=== PATIENT | female | born 1985 | race Two or more races ===

== ENCOUNTER 2018-08-10 18:03 | Emergency (ER) | payer OTHER, MEDICAID ==
[~2018-08-10] VITALS: Ht 167.6 cm; Wt 84.4 kg
--- NOTE | 2018-08-10 18:10 | NUR ---
PT TO ER BED 10 C/O LOWER ABDOMINAL PAIN W/ N/V/D X 2 WEEKS NOW. WAS AT [place] LAST WEEK AND WAS DIAGNOSED W/ DIVERTICULIS AND WAS ON ANTIBIOTICS. PT STATES STIL NOT GETTING ANY BETTER. PLACED ON MONITOR. VSS. AWAITING MD AUGUSTE.
--- NOTE | 2018-08-10 18:20 | NUR ---
DR DAILEY AT BEDSIDE FOR EVAL.
[2018-08-10] MEDS ORDERED: IV NS 0.9% 500 ML BAG IV ONE (18:30)
[2018-08-10 18:48] LABS: BASOPHILS # (AUTO) 0.1 /CMM (0.0-0.2); BASOPHILS % (AUTO) 1.9 % (0.0-2.0); EOSINOPHILS % (AUTO) 0.4 % (0.0-6.0); HEMATOCRIT 41 % (33-45); HEMOGLOBIN 13.5 g/dL (11.5-14.8); LYMPHOCYTES % (AUTO) 14.8 % (20.0-44.0); MEAN CORPUSCULAR HGB CONC 33 g/dl (31.0-36.0); MEAN CORPUSCULAR VOLUME 83 fL (82-100); MONOCYTES # (AUTO) 0.4 /CMM (0.1-1.30); MONOCYTES % (AUTO) 6.1 % (2.0-12.0); NEUTROPHILS # (AUTO) 5.4 /CMM (1.8-8.9); NEUTROPHILS % (AUTO) 76.8 % (43.0-81.0); PLATELET COUNT (AUTO) 169 /CMM (150-450); RDW COEFFICIENT OF VARIATION 20.1 (11.5-15.0); RED BLOOD CELL COUNT(AUTO) 4.95 MIL/uL (4.0-5.2); WHITE BLOOD COUNT (AUTO) 6.9 K/uL (4.3-11.0)
--- NOTE | 2018-08-10 18:50 | NUR ---
PT TO RADIOLOGY FOR ABDOMINAL CT SCAN VIA [facility].
[2018-08-10 18:58] LABS: CALCIUM, SERUM 8.8 mg/dL (8.5-10.1); CARBON DIOXIDE 24 mmol/L (21-32); CHLORIDE 95 mmol/L (98-107); CREATININE 1.1 mg/dL (0.6-1.3); GLUCOSE 115 mg/dL (74-106); POTASSIUM 3.4 mmol/L (3.5-5.1); SODIUM SERUM 129 mmol/L (136-145); UREA NITROGEN, BLOOD 13 mg/dL (7-18)
[2018-08-10 19:03] LABS: INR 4.07 (0.85-1.15)
[2018-08-10 19:04] LABS: ALANINE AMINOTRANSFERASE 649 U/L (12-78); ALBUMIN 3.4 g/dL (3.4-5.0); ALKALINE PHOSPHATASE 91 U/L (46-116); ASPARTATE AMINOTRANSFERASE 428 U/L (15-37); BILIRUBIN,DIRECT 1.2 mg/dL (0.0-0.2); BILIRUBIN,TOTAL 2.2 mg/dL (0.2-1.0); TOTAL PROTEIN, SERUM 6.1 g/dL (6.4-8.2)
[2018-08-10 19:06] LABS: TROPONIN I < 0.017 ng/mL (0.00-0.056)
--- NOTE | 2018-08-10 19:20 | NUR ---
Kelly vasquez in ED - 08/10/18 at 1920 by DAJA REPORT GIVEN TO NESTOR ELLIS FOR CHARISSE.
--- NOTE | 2018-08-10 19:20 | NUR ---
REPORT GIVEN TO NESTOR ELLIS FOR CHARISSE.
--- NOTE | 2018-08-10 19:21 | NUR ---
RECEIVED REPORT FROM ALONZO FOR CHARISSE
[2018-08-10] MEDS ORDERED: PIPERACILLIN /TAZOBACTAM 3.375 G in IV D5W 50 ML IV ONE (19:30)
[2018-08-10] MEDS ORDERED: PIPERACILLIN /TAZOBACTAM 3.375 G VIAL IV ONE (19:34)
[2018-08-10 20:05] LABS: ACETAMINOPHEN < 2 ug/ml (10-30); ALCOHOL, BLOOD < 3 mg/dL (0-0); SALICYLATE < 2.8 mg/dL (2.8-20.0)
--- NOTE | 2018-08-10 20:12 | NUR ---
TRANSFER INFO: [facility] ER CALL [phone] ACCEPTING [facility] ETA [phone]
--- NOTE | 2018-08-10 20:24 | NUR ---
GAVE REPORT TO NURSE SZYMANSKI FROM [facility] FOR CHARISSE
[2018-08-10] MEDS ORDERED: KETOROLAC TROMETHAMINE INJ 30 MG/ML VIAL ONE (21:57)
[2018-08-10] MEDS ORDERED: KETOROLAC TROMETHAMINE INJ 30 MG/ML VIAL IV ONE (22:00)
--- NOTE | 2018-08-10 22:04 | NUR ---
GAVE REPORT TO [facility] FOR CHARISSE
[2018-08-10 22:05] VITALS: BP 98/73
== END 2018-08-10 22:09 | disposition short-term general hospital (02) ==
LOC: ER 18:06
DX: K57.92 Diverticulitis of intestine, part unspecified, without perforation or abscess without bleeding (principal); R79.89 Other specified abnormal findings of blood chemistry; R74.0 Nonspecific elevation of levels of transaminase and lactic acid dehydrogenase [LDH]; D68.32 Hemorrhagic disorder due to extrinsic circulating anticoagulants; I11.0 Hypertensive heart disease with heart failure; I50.9 Heart failure, unspecified; I27.20 Pulmonary hypertension, unspecified; E03.9 Hypothyroidism, unspecified; R00.0 Tachycardia, unspecified; Z60.2 Problems related to living alone
CPT/HCPCS: 36415; 71045; 74176; 80048; 80076; 80329; 83605; 83690; 84484; 85025; 85730; 87040 ×2; 93005; 96361; 96365; 96375; 99285; A4606; G0480 ×2; J1885; J2543; J7040; J7060; Z7610